=== PATIENT | female | born 1980 | race Caucasian/White ===

== ENCOUNTER → 2023-09-05 11:26 | Outpatient (REF) | payer OTHER, SELFPAY | LOC: RAD 11:26 | PROVIDERS: ATTENDING PHYSICIAN Nurse Practitioner Family | DX: M79.641 Pain in right hand (principal) | CPT/HCPCS: 73130 ==

== ENCOUNTER → 2024-02-12 17:11 | Outpatient (REF) | payer OTHER, SELFPAY | LOC: RAD 17:11 | PROVIDERS: ATTENDING PHYSICIAN Nurse Practitioner Family | DX: N93.9 Abnormal uterine and vaginal bleeding, unspecified (principal) | CPT/HCPCS: 76830; 76856 ==

== ENCOUNTER → 2024-02-17 17:22 | Outpatient (REF) | payer OTHER, SELFPAY | LOC: WDC 17:22 | PROVIDERS: ATTENDING PHYSICIAN Nurse Practitioner Family; FAMILY PHYSICIAN Physician Assistant | DX: Z12.31 Encounter for screening mammogram for malignant neoplasm of breast (principal) | CPT/HCPCS: 77063; 77067 ==

== ENCOUNTER 2024-04-16 06:26 | Day surgery (SDC) | payer OTHER, SELFPAY ==
[2024-04-02 08:59] LABS: % Basophils 0.4 % (0-2); % Eosinophils 1.2 % (0-6); % Immature Granulocytes 0.3 % (0-0.5); % Lymphocytes 35.7 % (20.5-51.1); % Monocytes 5.3 % (1.7-9.3); % Neutrophils 57.1 % (42.2-75.2); Absolute Eosinophils 0.1 10^3/uL (0-0.7); Absolute Lymphocytes 2.8 10^3/uL (1.2-3.4); Absolute Monocytes 0.4 10^3/uL (0.1-0.6); Absolute Neutrophils 4.4 10^3/uL (1.4-6.5); Hematocrit 35.9 % (37.0-47.0); Hemoglobin 11.4 g/dL (12.0-16.0); Mean Corp Hgb Conc. 31.8 g/dL (33.0-37.0); Mean Corpuscular Hgb 24.3 pg (27.0-31.0); Mean Corpuscular Volume 76.4 fL (81.0-99.0); Nucleated Red Blood Cells % 0 %; Platelet Count 254 10^3/uL (130-400); Red Cell Dist. Width 17.8 % (11.5-14.5); White Blood Cell Count 7.7 10^3/uL (4.8-10.8)
[2024-04-02 09:10] VITALS: BMI 39.5
[2024-04-02 09:36] LABS: Blood Urea Nitrogen 8 mg/dl (7-17); Calcium 9.3 mg/dl (8.4-10.2); Carbon Dioxide 23 mmol/L (22-30); Chloride 105 mmol/L (98-107); Estimated Creatinine Clearance > 125 ml/min; Glucose 100 mg/dl (70-99); Potassium 4.2 mmol/L (3.5-5.1); Sodium 140 mmol/L (135-145); eGFR > 60.00
[2024-04-02 09:45] LABS: Beta HCG Quantitative < 2.39 mIU/ml
[2024-04-16] VITALS (11 sets, daily range): BP systolic 121–147; BP diastolic 55–93; BMI 39.5
[2024-04-16] MEDS: HEPARIN 5000 UNITS SC (11:02)
[2024-04-16] MEDS: TYLENOL 1000 MG PO (11:03)
[2024-04-16] MEDS: NEURONTIN 300 MG PO (11:03)
--- NOTE | 2024-04-16 15:15 | W.IMMPOSTOP ---
Surgical Immed Post Op Note
-
Primary Surgeon: Kenna Tarango, DO
Assisting Surgeon: same
Pre-op Diagnosis: Menorrhagia, probable adenomyosis, dysmenorrhea, anemia
Post-op Diagnosis: same
Procedure Performed: Robotic assisted total laparoscopic hysterectomy bilateral salpingectomy, lysis adhesions
Anesthesia Type: general ET, Dr. Ndiaye
Specimen / Cultures: uterus, cervix, bilateral fallopian tubes
Estimated Blood Loss: 15ml
Urine: 200ml clear yellow urine
Complications: none
Operative Findings: Omental adhesions to anterior abdominal wall. Uterus globular in shape. Adhesions from prior csection noted in YO.
Distal portion of right fallopian tube with fimbriated end is surgically absent from prior partial salpingectomy. Proximal portions of tubes attached to uterus.
No evidence of endometriosis.
Counts correct times 2.
stable to recovery.
== END 2024-04-16 18:00 | disposition home or self-care (01) ==
LOC: SDS 06:26
PROVIDERS: ATTENDING PHYSICIAN Obstetrics & Gynecology; FAMILY PHYSICIAN Nurse Practitioner Family
DX: N80.03 Adenomyosis of the uterus (principal); D64.9 Anemia, unspecified; N92.0 Excessive and frequent menstruation with regular cycle; K66.0 Peritoneal adhesions (postprocedural) (postinfection); N94.6 Dysmenorrhea, unspecified
CPT/HCPCS: 58571; 88307; 36415; 80048; 84702; 85025; 86850; 86900; 86901

== ENCOUNTER → 2024-08-13 11:33 | Outpatient (REF) | payer OTHER, SELFPAY | LOC: RAD 11:33 | PROVIDERS: ATTENDING PHYSICIAN Nurse Practitioner Family | DX: M54.50 Low back pain, unspecified (principal) | CPT/HCPCS: 72110; 73502 ==

== ENCOUNTER → 2024-09-25 13:20 | Outpatient (REF) | payer OTHER, SELFPAY | LOC: PAVMRI 13:20 | PROVIDERS: ATTENDING PHYSICIAN Physical Medicine & Rehabilitation; FAMILY PHYSICIAN Nurse Practitioner Family | DX: M54.16 Radiculopathy, lumbar region (principal) | CPT/HCPCS: 72148 ==

== ENCOUNTER 2024-11-09 11:36 | Outpatient (RCR) | payer OTHER, SELFPAY | END 2024-11-16 13:40 | disposition home or self-care (01) | LOC: RPT 11:36 | PROVIDERS: ATTENDING PHYSICIAN Physical Medicine & Rehabilitation; FAMILY PHYSICIAN Nurse Practitioner Family | DX: M54.16 Radiculopathy, lumbar region (principal); M51.26 Other intervertebral disc displacement, lumbar region; Z73.6 Limitation of activities due to disability | CPT/HCPCS: 97161 ==

== ENCOUNTER 2024-11-11 20:29 | Day surgery (SDC) | payer OTHER, SELFPAY ==
[2024-11-11] VITALS (14 sets, daily range): BP systolic 119–236; BP diastolic 67–122; BMI 41.1; BMI 40.5; BMI 41.0
[2024-11-11 11:26] LABS: % Basophils 0.2 % (0-2); % Eosinophils 0.9 % (0-6); % Immature Granulocytes 0.4 % (0-0.5); % Lymphocytes 21.1 % (20.5-51.1); % Monocytes 3.6 % (1.7-9.3); % Neutrophils 73.8 % (42.2-75.2); Absolute Eosinophils 0.1 10^3/uL (0-0.7); Absolute Lymphocytes 1.8 10^3/uL (1.2-3.4); Absolute Monocytes 0.3 10^3/uL (0.1-0.6); Absolute Neutrophils 6.3 10^3/uL (1.4-6.5); Hematocrit 38.7 % (37.0-47.0); Hemoglobin 13.5 g/dL (12.0-16.0); Mean Corp Hgb Conc. 34.9 g/dL (33.0-37.0); Mean Corpuscular Hgb 29.6 pg (27.0-31.0); Mean Corpuscular Volume 84.9 fL (81.0-99.0); Mean Platelet Volume 9.5 fL (7.4-10.4); Nucleated Red Blood Cells % 0 %; Platelet Count 178 10^3/uL (130-400); Red Blood Cell Count 4.56 10^6/uL (4.20-5.40); Red Cell Dist. Width 12.3 % (11.5-14.5); White Blood Cell Count 8.6 10^3/uL (4.8-10.8)
--- NOTE | 2024-11-11 11:37 | ED.GENMED ---
History of Present Illness
<DO Abilio Mtz Last Filed: 11/13/24 06:15>
General
Chief Complaint: Chest Pain
Source: patient
Time Seen by Provider: 11/11/24 11:25
History of Present Illness
History of Present Illness:
44-year-old female presents to the emergency room complaining of chest pain. Patient also complaining of headaches and not feeling herself. Patient also has been experiencing low back pain from a herniated disc and degenerative disc disease. She
recently had epidural injections. She was sent to physical therapy for her back. Last week when she went for physical therapy they would not perform it because her blood pressure was high. Patient contacted her family doctor and she was told to
monitor her blood pressure and come to the emergency room if she feels worse. Patient woke this morning and was experiencing this discomfort in her center of her chest. She thought it might be indigestion but symptoms did not improve with Pepcid.
Pain seems to come and go without any correlation with activity. She denies any associated shortness of breath.
Past History
<DO Abilio Mtz Last Filed: 11/13/24 06:15>
Past History
ED Past Medical History: None
ED Past Surgical History: None
Social History
Personal:
Living: with family
Phy Exam
<DO Abilio Mtz Last Filed: 11/13/24 06:15>
Physical Exam
Physical Exam:
General: Awake, Alert, Oriented X3. No acute distress.
Vitals: unremarkable
Head: Atraumatic
Eyes: Pupils equal, EOMI
Throat: Airway intact, no exudates
Neck: Trachea midline
Lungs: Clear and equal b/l
Heart: Regular rate, no murmurs
Abd: Soft, Nontender, No pulsatile mass
Neuro: Nonfocal l
Skin: Warm, dry, no rash
Extremities: pulses equal b/l, no edema
Scores
<Salinas SchultzSterling Ku, DO - Last Filed: 11/13/24 06:15>
Heart Score for Chest Pain Patients
STEMI patient?: No
History: Slightly or Non-Suspicious
ECG: Normal
Age: </= 45 years
Risk Factors: No Risk Factors
Troponin: </= Normal Limit
Heart Score for Chest Pain Patients: 0
Heart Score Risk: 2.5% MACE over next 6 weeks
Course
<Salinas AntoineSterling Ku, DO - Last Filed: 11/13/24 06:15>
Orders/Labs/Results
Orders:
Orders
11/11/24 10:48
Electrocardiogram (*1) Urgent
Reason for Study: Chest Pain
EKG- Treatment ONCE
11/11/24 11:18
Test Result ONCE
11/11/24 11:20
Complete Blood Count/With Diff Urgent
11/11/24 11:36
Mag Hydrox/Al Hydrox/Simeth [Maalox] 30 ml Phenobarb/Hyoscy/Atropine/Scop [] 10 ml PO NOW
CR Chest - 2 Views Urgent
Comment:
Reason For Exam: chest pain
11/11/24 11:46
Phenobarb/Hyoscy/Atropine/Scop [] 10 ml .ROUTE .STK-MED ONE
11/11/24 11:47
Mag Hydrox/Al Hydrox/Simeth [Maalox] 30 ml .ROUTE .STK-MED ONE
11/11/24 11:50
Comprehensive Metabolic Panel Urgent
HCG, Serum Qualitative Screen Urgent
Lipase Urgent
11/11/24 11:59
Troponin I Urgent
11/11/24 Dinner
Regular
At Your Request: Full Participation
11/11/24 15:49
Troponin I Urgent
11/11/24 16:21
Ketorolac [Toradol] 15 mg IV NOW STA
11/11/24 17:39
HYDROmorphone [Dilaudid] 1 mg IV NOW STA
US Abdomen Complete/Upper Urgent
Comment:
Reason For Exam: ruq pain
11/11/24 19:44
Admit/Transfer Patient As Directed
Co-Sign Provider:
Level of Care: Observation services
Assign to:: Medical/Surgical
Physician / Group: general surgery
Diagnosis: acute cholelithiasis
11/11/24 19:45
PRN Pain Medication Management As Directed
May give lesser potent ordered pain med per pt: Yes
preference::
Protocol:: Medication orders for pain may be administered in a
manner that supports deferring to patient preference
when the pt is:
- Requesting an ordered lesser potent pain medication.
Least to most potent pain medications are defined
as: acetaminophen < NSAID < tramadol < opioids
(morphine, oxycodone, hydromorphone).
- Requesting a lesser dose of the same medication IF
ORDERED.
- Requesting a less intrusive route of administration
if both routes are prescribed by the provider (PO <
IV).
11/11/24 19:47
Code Status As Directed
Resuscitation Status: Full Code
11/11/24 20:08
0.9% Sodium Chloride 1000 ml [Nss] 1,000 ml IV 125 mls/hr
HYDROmorphone [Dilaudid] 1 mg IV Q3HPRN PRN
Ketorolac [Toradol] 15 mg IV Q6HPRN PRN
11/11/24 20:09
Piperacillin/Tazo 3.375 Gram [Zosyn] 3.375 gram in 50 ml IV Q6H
11/11/24 20:36
HydrALAZINE [Apresoline] 5 mg IV Q4HPRN PRN
11/11/24 20:36
Activity As Directed
Activity Level: Out of Bed-Early Mobility
Intake/ Output As Directed
Frequency: Per unit guidelines
Pneumatic Compression Sleeves As Directed
Type: Knee high
Vital Signs As Directed
Frequency: Per unit guidelines
Rx Incentive Spirometry [RESP] Routine
Frequency: q1h while awake
# of times per hour: 10
DX Deep Vein Thrombosis Video Routine
11/11/24 22:00
Gabapentin [Neurontin] 300 mg PO TID
11/12/24 Breakfast
NPO
Allow oral meds: Yes
Allow clear liquids: No
NPO with Ice Chips: No
NPO for procedure after (time): 0000 11/12/24
11/12/24 07:45
Complete Blood Count/With Diff IN AM
Hemoglobin A1c [Glycohemoglobin (HgbA1c)] IN AM
Otgnv-Puai-Klaviwa IN AM
Abnormal Lab Results
11/11/24
11:50
Chloride 109 H mmol/L
(98-107)
Creatinine 0.5 L mg/dL
(0.6-1.0)
Glucose 182 H mg/dl
(70-99)
AST 42 H U/L
(14-36)
ALT 72 H U/L
(0-35)
11/11/24 11:20
11/11/24 11:50
Vital Signs
Initial and Last Documented VS:
Initial Vital Signs
Temp Pulse Resp BP Pulse Ox
98.7 F 85 18 236/119 98
11/11/24 10:55 11/11/24 10:55 11/11/24 10:55 11/11/24 10:55 11/11/24 10:55
Last Documented Vital Signs
Temp Pulse Resp BP Pulse Ox
98.4 F 98 17 131/79 97
11/13/24 03:15 11/13/24 03:15 11/13/24 03:15 11/13/24 03:15 11/13/24 03:15
<Hossein Marshall, DO - Last Filed: 11/11/24 19:16>
Orders/Labs/Results
Orders:
Orders
11/11/24 10:48
Electrocardiogram (*1) Urgent
Reason for Study: Chest Pain
EKG- Treatment ONCE
11/11/24 11:18
Test Result ONCE
11/11/24 11:20
Complete Blood Count/With Diff Urgent
11/11/24 11:36
Mag Hydrox/Al Hydrox/Simeth [Maalox] 30 ml Phenobarb/Hyoscy/Atropine/Scop [] 10 ml PO NOW
CR Chest - 2 Views Urgent
Comment:
Reason For Exam: chest pain
11/11/24 11:46
Phenobarb/Hyoscy/Atropine/Scop [] 10 ml .ROUTE .STK-MED ONE
11/11/24 11:47
Mag Hydrox/Al Hydrox/Simeth [Maalox] 30 ml .ROUTE .STK-MED ONE
11/11/24 11:50
Comprehensive Metabolic Panel Urgent
HCG, Serum Qualitative Screen Urgent
Lipase Urgent
11/11/24 11:59
Troponin I Urgent
11/11/24 Dinner
Regular
At Your Request: Full Participation
11/11/24 15:49
Troponin I Urgent
11/11/24 16:21
Ketorolac [Toradol] 15 mg IV NOW STA
11/11/24 17:39
HYDROmorphone [Dilaudid] 1 mg IV NOW STA
US Abdomen Complete/Upper Urgent
Comment:
Reason For Exam: ruq pain
11/11/24 19:44
Admit/Transfer Patient As Directed
Co-Sign Provider:
Level of Care: Observation services
Assign to:: Medical/Surgical
Physician / Group: general surgery
Diagnosis: acute cholelithiasis
11/11/24 19:45
PRN Pain Medication Management As Directed
May give lesser potent ordered pain med per pt: Yes
preference::
Protocol:: Medication orders for pain may be administered in a
manner that supports deferring to patient preference
when the pt is:
- Requesting an ordered lesser potent pain medication.
Least to most potent pain medications are defined
as: acetaminophen < NSAID < tramadol < opioids
(morphine, oxycodone, hydromorphone).
- Requesting a lesser dose of the same medication IF
ORDERED.
- Requesting a less intrusive route of administration
if both routes are prescribed by the provider (PO <
IV).
11/11/24 19:47
Code Status As Directed
Resuscitation Status: Full Code
11/11/24 20:08
0.9% Sodium Chloride 1000 ml [Nss] 1,000 ml IV 125 mls/hr
HYDROmorphone [Dilaudid] 1 mg IV Q3HPRN PRN
Ketorolac [Toradol] 15 mg IV Q6HPRN PRN
11/11/24 20:09
Piperacillin/Tazo 3.375 Gram [Zosyn] 3.375 gram in 50 ml IV Q6H
11/11/24 20:36
HydrALAZINE [Apresoline] 5 mg IV Q4HPRN PRN
11/11/24 20:36
Activity As Directed
Activity Level: Out of Bed-Early Mobility
Intake/ Output As Directed
Frequency: Per unit guidelines
Pneumatic Compression Sleeves As Directed
Type: Knee high
Vital Signs As Directed
Frequency: Per unit guidelines
Rx Incentive Spirometry [RESP] Routine
Frequency: q1h while awake
# of times per hour: 10
DX Deep Vein Thrombosis Video Routine
11/11/24 22:00
Gabapentin [Neurontin] 300 mg PO TID
11/12/24 Breakfast
NPO
Allow oral meds: Yes
Allow clear liquids: No
NPO with Ice Chips: No
NPO for procedure after (time): 0000 11/12/24
11/12/24 07:45
Complete Blood Count/With Diff IN AM
Hemoglobin A1c [Glycohemoglobin (HgbA1c)] IN AM
Uadgx-Jyej-Cgxbcht IN AM
Abnormal Lab Results
11/11/24
11:50
Chloride 109 H mmol/L
(98-107)
Creatinine 0.5 L mg/dL
(0.6-1.0)
Glucose 182 H mg/dl
(70-99)
AST 42 H U/L
(14-36)
ALT 72 H U/L
(0-35)
11/11/24 11:20
11/11/24 11:50
Vital Signs
Initial and Last Documented VS:
Initial Vital Signs
Temp Pulse Resp BP Pulse Ox
98.7 F 85 18 236/119 98
11/11/24 10:55 11/11/24 10:55 11/11/24 10:55 11/11/24 10:55 11/11/24 10:55
Last Documented Vital Signs
Temp Pulse Resp BP Pulse Ox
98.4 F 98 17 131/79 97
11/13/24 03:15 11/13/24 03:15 11/13/24 03:15 11/13/24 03:15 11/13/24 03:15
<Salinas Ku DO - Last Filed: 11/13/24 06:15>
MDM/Problems Addressed
Differential Diagnosis Includes:
Angina, gastritis, chest wall pain
<DO Abilio Mtz Last Filed: 11/13/24 06:15>
*Pulse Oximetry
Patient hypoxic: no
*EKG
Interpreted by ED Provider?: Yes
Interpretation: normal
Heart Rate: 86
Rate: normal
Rhythm: sinus
[place]: normal axis
Interval: normal interval
QRS Pattern: normal QRS
Ischemia: no ischemia
*Claims Customer Service Representative Interpretation
Rate: normal
Interpretation: normal
Rhythm: sinus
*Critical Care Note
Total Time (30-74mins, 75-104mins- exclusive of procedures): Not Applicable
<Hossein Marshall, DO - Last Filed: 11/11/24 19:16>
Update Note
Update Note:
5:30 PM 3 PM ER attending
Update, patient signed out pending second troponin reevaluation she has chronic low back pain recently underwent some steroid injections, known gallstones, was exacerbated during , she has reproducible chest pain with 2 undetectable
troponins, no hypoxia, 99% room air pulse ox she asks if this could be this could be her gallbladder, on exam she does have some right upper quadrant pain
Will try to get her comfortable, check right upper quadrant ultrasound
7:15 PM ultrasound report noted patient more comfortable after Dilaudid but still with some pain in her right upper quadrant
She has chronic back pain did present with some chest pain this point I think it is prudent to bring her in the hospital message sent to the hospitalist into general surgery
ED Attending Note
<Salinas Ku, - Last Filed: 11/13/24 06:15>
-
Portions of this chart may have been created with voice recognition software.� Occasional wrong word or��sound alike� substitutions may have occurred due to the inherent limitations of voice recognition software.
Discharge Plan
Departure
Patient Disposition: Admit
Date of Disposition: 11/11/24
Time of Disposition: 19:16
Admit to: Telemetry
Presentation/result/management discussed w/ accepting MD/DO: General surgery
Patient with high blood pressure during this ER visit?: Yes
Condition: Good
Discharge Problem:
Abdominal pain, Gallstone
Interventions
Interventions:
*Risk Screen - Suicide Last Done: 11/11/24 10:55
*General Assessment Last Done: 11/11/24 10:55
*Neglect/Abuse Screening Last Done: 11/11/24 10:55
*ED- Fall Risk Assessment Last Done: 11/11/24 11:22
*ED COVID-19 Vaccine History Last Done: 11/11/24 11:22
*Nursing Disposition Last Done: 11/11/24 20:34
ED- Cardiac Assessment Last Done: 11/11/24 11:24
Discharge Date and Time
Discharge Date/Time: 11/11/24 20:35
[2024-11-11] MEDS: MAALOX 40 PO (11:47)
[2024-11-11 12:23] LABS: HCG, Serum Qualitative Screen Negative
[2024-11-11 12:31] LABS: ALT (SGPT) 72 U/L (0-35); AST (SGOT) 42 U/L (14-36); Albumin 4.4 g/dl (3.5-5.0); Alkaline Phosphatase 54 U/L (38-126); Blood Urea Nitrogen 7 mg/dl (7-17); Calcium 9.6 mg/dl (8.4-10.2); Carbon Dioxide 23 mmol/L (22-30); Chloride 109 mmol/L (98-107); Estimated Creatinine Clearance > 125 ml/min; Glucose 182 mg/dl (70-99); Lipase 79 U/L (23-300); Potassium 4.1 mmol/L (3.5-5.1); Sodium 141 mmol/L (135-145); Total Bilirubin 0.6 mg/dl (0.2-1.3); Total Protein 7.2 g/dl (6.3-8.2); eGFR > 60.00
[2024-11-11 12:47] LABS: Troponin I < 0.012 ng/ml
[2024-11-11 16:19] LABS: Troponin I < 0.012 ng/ml
[2024-11-11] MEDS: TORADOL 15 MG IV (16:55)
[2024-11-11] MEDS: DILAUDID 1 MG IV ×2 (17:51→21:09)
--- NOTE | 2024-11-11 19:23 | HPS.HSE ---
Family Physician
-
Family Physician: Kaya Chambers PA-C
Chief Complaint
-
Epigastric pain
History of Present Illness
This is a 44-year-old female with past medical history significant for obesity, chronic back pain presents to the emergency department with complaints of chest pain. She reports not feeling well overall. She had additional numerous complaints
including low back pain for which she had been diagnosed with an needed disc and degenerative disc disease. She has had recent epidural injection. She arose this morning experienced discomfort in the joints of her chest. She thought it might be
indigestion but did not improve with Pepcid. Pain is intermittent. She denies any association with shortness of breath nausea or vomiting. She denies any fevers or chills.
In the emergency department she was afebrile, blood pressure was 170/99 with a pulse of 77 she was satting 95% on room air.
CBC was unremarkable.
The electrolyte BUN/creatinine were all normal. LFTs were normal. Lipase was normal. ECG with sinus rhythm and nonischemic. Troponin negative.
She had a clear chest x-ray.
Abdominal ultrasound showing:
1. Cholelithiasis and gallbladder wall thickening, findings which can be seen in the clinical setting of acute cholecystitis. Negative sonographic Gaming's sign, although the patient was medicated which limits sensitivity.
2. Hepatomegaly and increased echogenicity in the liver, compatible with underlying hepatocellular disease, which most commonly relates to fatty infiltration of the liver.
3. Mild splenomegaly.
Medical History
Past Medical History
Past Medical History: Reports Other
Additional Past Medical History:
Hypertension
Past Surgical History: Reports Other
Additional Past Surgical History:
Hysterectomy
2 C-sections
Social History
Tobacco: Non-smoker
Alcohol: None
Drug: None
Family History
Family History: Not pertinent
Allergies / Home Medications
Allergies reflects when Allergies were last updated in [facility].
Home Medications with original date entered in [facility]
Allergy/Medication List:
Allergies
Allergy/AdvReac Type Severity Reaction Status Date / Time
No Known Allergies Allergy Verified 11/11/24 10:54
Home Medications
medroxyprogesterone 5 mg tablet (Provera) 5 mg PO DAILY 04/09/24
turmeric 400 mg capsule 400 mg PO DAILY 04/09/24
iron 65 mg PO DAILY 04/16/24
oxycodone 5 mg tablet 5 mg PO SDS-Q4HPRN PRN moderate pain #12 tabs 04/16/24
Review of Systems
-
Constitutional: Reports No Symptoms
EENT: Reports No Symptoms
Respiratory: Reports No Symptoms
Cardiac: Reports No Symptoms
Abdomen/GI: Reports No Symptoms
: Reports No Symptoms
Musculoskeletal: Reports No Symptoms
Skin: Reports No Symptoms
Neurological: Reports No Symptoms
Endocrine: Reports No Symptoms
Hematologic/Lymphatic: Reports No Symptoms
Psych: Reports No Symptoms
Physical Exam
Vital Signs
Vital Signs
Temp Pulse Resp BP Pulse Ox
98.7 F 77 17 170/99 95
11/11/24 10:55 11/11/24 18:45 11/11/24 18:45 11/11/24 18:34 11/11/24 18:45
Physical Exam
General: Well Developed, Well Nourished and No Apparent Distress
HEENT: NormoCephalic, Moist mucous membranes and Atraumatic
Respiratory: Clear
Cardiac: S1/S2 and Regular Rhythm; No Murmur or Rub
GI: Soft, Non Tender, Non Distended and Normal Bowel Sounds; No Organomegaly
Rectal: Deferred by Provider
Musculoskeletal: No Clubbing, No Cyanosis and No Edema
Skin: No Rash
Neuro: Nonfocal/grossly intact
Psych: Calm
Laboratory Results
-
11/11/24 11:20
11/11/24 11:50
Laboratory Results
Total Bilirubin 0.6 mg/dl (0.2-1.3) 11/11/24 11:50
AST 42 U/L (14-36) H 11/11/24 11:50
ALT 72 U/L (0-35) H 11/11/24 11:50
Alkaline Phosphatase 54 U/L (38-126) 11/11/24 11:50
Troponin I < 0.012 ng/ml 11/11/24 15:49
Lipase 79 U/L (23-300) 11/11/24 11:50
Data Reviewed
-
Diagnostic Radiology: Image Personally Visualized and interpreted and Report Reviewed by me
Ultrasound: Report Reviewed by me
Medical Tests (Nuc Med, Echo, EKG etc): Image Personally Visualized and interpreted
Old Records: Reviewed
Impression/Plan
-
IMPRESSION:
44-year-old female with morbid obesity, BMI 40 presenting to the emergency department with epigastric discomfort and found to have acute cholecystitis on ultrasound. She is afebrile. Hemodynamically stable. She has no leukocytosis. Had a
gallstones in the gallbladder but no evidence of choledocholithiasis. No evidence of acute cholangitis.
PLAN:
1. Acute cholecystitis
- Admit to MedSurg
- N.p.o.
- IV fluids
- Unasyn for now
- Trend LFTs
- Pain control, antiemetics
- Surgery consulted and aware
DVT prophylaxis�heparin subcu
CODE STATUS�full code
--- NOTE | 2024-11-11 19:54 | HPS.HSE ---
Addendum entered and electronically signed by Westley Albright MD 11/12/24 14:27:
This is a delayed entry. Patient seen and examined earlier today independently of admitting nurse practitioner. Agree with documented progress note.
HPI: 44-year-old female with known history of cholelithiasis and previous episodes of biliary colic that she had been managing expectantly. She developed the acute onset of epigastric abdominal pain radiating substernally with nausea and anorexia.
More severe than her previous episodes of biliary colic. She was worried that it could be cardiac in etiology because her blood pressure was high. She presented for emergency department evaluation and pulmonary/cardiac workup negative. Ultrasound
confirmed gallstones and 5 mm wall with pericholecystic edema. She was admitted secondary to persistent symptoms.
PMH newly diagnosed hypertension. Lumbar herniated disc
PSH and robotic AJAY/BSO
AFVSS
NAD AAO x 3
ABD: Soft, nondistended, mild tenderness palpation epigastrium and right upper quadrant. No rebound rigidity or guarding.
Assessment/plan: Reviewed with patient history and workup which is consistent with acute biliary colic versus acute calculus cholecystitis. We discussed operative as well as nonoperative management options. Surveillance with a low-fat diet
modification may be associated with about 60% risk for recurrent symptomatic cholelithiasis. Briefly discussed lower risk for additional secondary gallstone mediated complications such as acute calculous cholecystitis, pancreatitis,
choledocholithiasis.
In the setting of acute biliary colic/acute calculus cholecystitis Ms. Armstrong would like to proceed with cholecystectomy.
Laparoscopic cholecystectomy with cholangiogram was reviewed in detail including operative technique and alternative management options. The potential benefits and risks of the procedure were reviewed in detail, including but not limited to
infectious or wound healing complications, bleeding, bile leak, injury to biliary tree, iatrogenic injury to surrounding viscera and post cholecystectomy syndrome. Reviewed the typical postoperative recovery.
Any of the patient's concerns or questions were fully addressed and informed consent was obtained.
Original Note:
Family Physician
-
Family Physician: Kaya Chambers PA-C
Chief Complaint
-
chest pain/upper abd pain
History of Present Illness
44-year-old female presents to the emergency room complaining of chest pain. Pt states started with upper chest pain (epigastric) this am, initially thought it was indigestion and took some pepcid which did not help. Had nausea but no vomiting.
Denies fever or chills Patient also complaining of headaches and not feeling herself. Patient also has been experiencing low back pain from a herniated disc and degenerative disc disease. She recently had epidural injections (2 weeks ago). Last
week when she went for physical therapy they would not perform it because her blood pressure was high. Patient contacted her family doctor and she was told to monitor her blood pressure and come to the emergency room if she feels worse- this
morning bp was 203/103. Mother had NV at age 45 so she was worried about that ad took 81mg asa prior to coming to ED. Pain seems to come and go without any correlation with activity. She denies any associated shortness of breath. Father and
sister had gallbladder disease as well.
ED treament:
toradol x1
dilaudid 1mg x 1 which improved pain
Abd Us: IMPRESSION:
1. Cholelithiasis and gallbladder wall thickening, findings which can be seen in the clinical setting of acute cholecystitis. Negative sonographic Gaming's sign, although the patient was medicated which limits sensitivity.
2. Hepatomegaly and increased echogenicity in the liver, compatible with underlying hepatocellular disease, which most commonly relates to fatty infiltration of the liver.
3. Mild splenomegaly.
Medical History
Past Medical History
Past Medical History: Reports HTN (newly dx. not started on medications yet. told to monitor at home and log) and Other (herniated lumbar disc. had epidural 2 weeks ago)
Past Surgical History: Reports and Gynocological ([facility] with bso 04/2024)
Social History
Tobacco: Non-smoker
Alcohol: None
Personal:
Living: With Family
Employment: Employed (at [employer])
Family History
Family History: Other (mother NV at age 45y, father and sister with gallbladder disease)
Allergies / Home Medications
Allergies reflects when Allergies were last updated in [employer].
Home Medications with original date entered in [employer]
Allergies
Allergy/AdvReac Type Severity Reaction Status Date / Time
No Known Allergies Allergy Verified 11/11/24 10:54
Home Medications
gabapentin 300mg po tid
celebrex 200mg po daily
Allergy/Medication List:
Allergies
Allergy/AdvReac Type Severity Reaction Status Date / Time
No Known Allergies Allergy Verified 11/11/24 10:54
Home Medications
gabapentin 300mg po tid
celebrex 200mg po daily
Review of Systems
-
History Source: Patient
A 12 point ROS was completed and negative except as noted: Yes
Constitutional: Reports No Symptoms
EENT: Reports No Symptoms
Respiratory: Reports No Symptoms
Cardiac: Reports Chest Pain (RUQ, high bp at home 203/104)
Abdomen/GI: Reports Abdominal Pain (RUQ) and Nausea
: Reports No Symptoms
Musculoskeletal: Reports Other (back pain with radiculopathy to RLE. had epidural 2 weeks ago)
Skin: Reports No Symptoms
Neurological: Reports No Symptoms
Endocrine: Reports No Symptoms
Hematologic/Lymphatic: Reports No Symptoms
Psych: Reports No Symptoms
Physical Exam
Vital Signs
Vital Signs
Temp Pulse Resp BP Pulse Ox
98.7 F 77 17 170/99 95
11/11/24 10:55 11/11/24 18:45 11/11/24 18:45 11/11/24 18:34 11/11/24 18:45
Physical Exam
General: Well Developed, Well Nourished, No Apparent Distress and Comfortable
HEENT: NormoCephalic, Moist mucous membranes and Atraumatic
Respiratory: Clear
Cardiac: S1/S2 and Regular Rhythm
Breast: Deferred by me
GI: Normal Bowel Sounds and Tender (ruq tender to palpation)
Rectal: Deferred by Provider
Genito-urinary: Deferred by me
Musculoskeletal: No Clubbing and No Cyanosis
Skin: Warm and Dry
Neuro: Awake, Alert, Oriented, AO x 3 and No Motor Deficits
Hematologic/Lymphatic: No Lymphadenopathy
Psych: Calm
Laboratory Results
-
11/11/24 11:20
11/11/24 11:50
Laboratory Results
Total Bilirubin 0.6 mg/dl (0.2-1.3) 11/11/24 11:50
AST 42 U/L (14-36) H 11/11/24 11:50
ALT 72 U/L (0-35) H 11/11/24 11:50
Alkaline Phosphatase 54 U/L (38-126) 11/11/24 11:50
Troponin I < 0.012 ng/ml 11/11/24 15:49
Lipase 79 U/L (23-300) 11/11/24 11:50
Data Reviewed
-
Ultrasound: Report Reviewed by me and Discussed with Physician
Impression/Plan
-
IMPRESSION:
acute cholelithiasis
PLAN:
Admit to service of Dr Varghese
med surg obs
#acute cholelithiaisis
-NPO x meds after midnight
-ivf NSS @ 125
-Pain control: dilaudid, toradol prn
-zosyn q6h
-Abd US: IMPRESSION:
1. Cholelithiasis and gallbladder wall thickening, findings which can be seen in the clinical setting of acute cholecystitis. Negative sonographic Gaming's sign, although the patient was medicated which limits sensitivity.
2. Hepatomegaly and increased echogenicity in the liver, compatible with underlying hepatocellular disease, which most commonly relates to fatty infiltration of the liver.
3. Mild splenomegaly.
#HTN
-hydralazine prn
-follow up with [facility] at [facility] for [facility]N
#herniated disc lumbar spine
-cont gabapentin
-hold celebrex
# morbid obesity
-affects all aspect of care
-weight loss encouraged
DVT proph: scd
Full code
[2024-11-11] MEDS: NSS 1000 IV (21:10)
[2024-11-11] MEDS: ZOSYN 50 IV (21:10)
[2024-11-11] MEDS: APRESOLINE 5 MG IV (21:10)
[2024-11-11] MEDS: NEURONTIN 300 MG PO (21:11)
--- NOTE | 2024-11-11 21:30 | PTCARENOTE ---
Pt. admitted to 2S from ED via stretcher and able to ambulate to room bed without difficulty. Pt. A&Ox3, in NAD but reports feeling prior pain medication starting to wear off, even and unlabored breathing on RA, vital signs stable with high BP, will
give PRN Hydralazine per orders. Questions/concerns of patient and spouse addressed at time of assessment. Bed locked and in lowest position, side rails in place, and call light within reach.
[2024-11-12] VITALS (13 sets, daily range): BP systolic 112–172; BP diastolic 50–109
[2024-11-12] MEDS: TORADOL 15 MG IV ×3 (00:01→21:49)
[2024-11-12] MEDS: ZOSYN 50 IV ×2 (02:08→08:56)
[2024-11-12] MEDS: NSS 1000 IV ×2 (06:34→16:11)
[2024-11-12 08:08] LABS: % Basophils 0.2 % (0-2); % Eosinophils 0.9 % (0-6); % Immature Granulocytes 0.4 % (0-0.5); % Lymphocytes 25.1 % (20.5-51.1); % Monocytes 3.7 % (1.7-9.3); % Neutrophils 69.7 % (42.2-75.2); Absolute Eosinophils 0.1 10^3/uL (0-0.7); Absolute Lymphocytes 2.5 10^3/uL (1.2-3.4); Absolute Monocytes 0.4 10^3/uL (0.1-0.6); Hematocrit 35.1 % (37.0-47.0); Hemoglobin 12.2 g/dL (12.0-16.0); Mean Corp Hgb Conc. 34.8 g/dL (33.0-37.0); Mean Corpuscular Hgb 29.3 pg (27.0-31.0); Mean Corpuscular Volume 84.2 fL (81.0-99.0); Mean Platelet Volume 9.7 fL (7.4-10.4); Nucleated Red Blood Cells % 0 %; Platelet Count 190 10^3/uL (130-400); Red Blood Cell Count 4.17 10^6/uL (4.20-5.40); Red Cell Dist. Width 12.3 % (11.5-14.5)
[2024-11-12] MEDS: NEURONTIN 200 MG PO ×3 (08:56→21:48)
[2024-11-12 08:59] LABS: ALT (SGPT) 57 U/L (0-35); AST (SGOT) 28 U/L (14-36); Albumin 3.7 g/dl (3.5-5.0); Alkaline Phosphatase 48 U/L (38-126); Direct Bilirubin 0.2 mg/dl (0.0-0.4); Total Bilirubin 0.9 mg/dl (0.2-1.3); Total Protein 6.2 g/dl (6.3-8.2)
[2024-11-12 09:22] LABS: Glycohemoglobin (HgbA1c) 5.8 % (4.0-5.6)
--- NOTE | 2024-11-12 11:43 | CM ---
Addendum entered by Magalis Hodges 11/12/24 11:47:
Patient now [facility] [place].
Original Note:
Patient seen at bedside on [address] with patient and 3 daughters. Patient states that she lives with her and 3 daughters. Patient PCP is with [facility] in [place]. Patient stated that she is for surgery
today. Patient stated that she plans for discharge home with no needs. CM will continue to follow for discharge planning needs.
Plan; home with no needs anticipated at this time
--- NOTE | 2024-11-12 14:27 | W.IMMPOSTOP ---
Addendum entered and electronically signed by Westley Albright MD 11/12/24 14:40:
#[id number]
Original Note:
Surgical Immed Post Op Note
-
Primary Surgeon: Westley Albright MD
Assisting Surgeon: Goldie FERRARA
Pre-op Diagnosis: Acute biliary colic/acute calculus cholecystitis
Post-op Diagnosis: Acute biliary colic with probable chronic calculus cholecystitis
Procedure Performed: Laparoscopic cholecystectomy with cholangiogram
Anesthesia Type: GETA +0.25% Marcaine
Specimen / Cultures: Gallbladder
Estimated Blood Loss: 6 mL
Complications: None immediate
Operative Findings: Physiologically distended gallbladder. Filmy omental adhesions suggestive of chronic cholecystitis. Some edema around the cystic triangle consistent with acute biliary colic. Intraoperative cholangiogram normal. Cystic duct
controlled with 2 clips and an 0 PDS Endoloop placed proximal to clip. Cystic artery and branch to cystic duct controlled with clips. Gallbladder removed off liver bed intact and extracted at epigastric 12 mm trocar site.
[2024-11-12] MEDS: ZOSYN IV (14:44)
[2024-11-12] MEDS: DILAUDID 0.25 MG IV (15:18)
[2024-11-12] MEDS: DILAUDID 0.5 MG IV ×2 (15:28→16:12)
[2024-11-12] MEDS: APRESOLINE 5 MG IV ×2 (16:09→20:21)
[2024-11-12] MEDS: LOVENOX 40 MG SC (16:12)
--- NOTE | 2024-11-12 16:25 | PTCARENOTE ---
1500: pt return from sx lap ame. GA, EBL 6mls, local to abd but pt stating uncomfortable then dozing. manual BP 164/102. Hydralazine administered. ice to belly, bed low call fox in reach NSS 125 via 20g RAC.
--- NOTE | 2024-11-12 20:00 | PTCARENOTE ---
TT Dr. Albright for BP is 163/106.. I gave Hydrazidine at 1630 for BP 173/105 than manual of 164/102. will continue to monitor.
[2024-11-12] MEDS: ZOFRAN 4 MG IV (22:18)
[2024-11-12] MEDS: DILAUDID 1 MG IV (22:58)
--- NOTE | 2024-11-13 00:52 | PTCARENOTE ---
Patient vomited large amount of emesis at approx. 2200. Patient felt relief after, antiemetic medication also administered after episode. Scant about of blood dripping from top lap site after patient vomited. Site cleaned and pressure applied with
gauze, 4x4 and occlusive drsg applied to site. At this time, when lap site is rechecked, there is no bleeding/drainage on 4x4 drsg. Care ongoing, patient lying in bed.
[2024-11-13 03:15] VITALS: BP 131/79
[2024-11-13] MEDS: NSS 1000 IV (03:37)
[2024-11-13] MEDS: NSS IV ×2 (03:37→11:35)
[2024-11-13] MEDS: ROXICODONE 5 MG PO ×2 (06:46→11:35)
[2024-11-13 07:10] VITALS: BP 141/76
--- NOTE | 2024-11-13 08:48 | W.PN.GS2 ---
Addendum entered and electronically signed by Westley Albright MD 11/13/24 09:13:
Patient seen and examined with surgical SIDER MECHANIC in follow-up this a.m.
Agree with documented progress note
Overall patient feeling well postoperatively with some lingering incisional pain but adequately controlled.
Ate breakfast well.
AFVSS
NAD AAO x 3
ABD: Soft, nondistended, incisional tenderness predominantly at epigastric site. Surgical sites with glue dressings. No hematomas, no erythema, no drainage at this time.
A/P: 44-year-old female POD #1 status post lap ame
Doing well postop
Stable for discharge home, DC instructions reviewed
Advised to continue to monitor blood pressure as she was preoperatively and if remains elevated reach out to her primary care provider
Original Note:
Today's Communication / Plan
-
discharge to home
Assessment / Plan
-
44 yo female who presented with biliary colic with probably chronic calculous cholecystitis now POD #1 lap ame
AFVSS
Tolerating diet, pain well managed
Progressing well
--Continue LFD as tolerated
--Analgesics prn
--OOB/ambulate
--Dispo planning
Subjective Data
-
Date of Service: November 13, 2024
Pt seen and examined at bedside with Dr. Albright. Denies n/v. Tolerating diet. Some incisional soreness, ice pack and analgesics helping. Passing flatus.
Objective Data
-
Intake and Output
11/12/24 11/13/24 11/14/24
06:59 06:59 06:59
Intake Total 3370 / 3370
Balance 3370 / 3370
Intake:
Oral fluids 720 / 720
IV fluids (Total) 2600 / 2600
Normosol 100 / 100
IV piggybacks 50 / 50
Other:
Number of approximated MODERATE 1
amounts of urine
How many times incontinent 3
MODERATE amount urine
Vital Signs
Temp Pulse Resp BP Pulse Ox
98.4 F 98 17 131/79 97
11/13/24 03:15 11/13/24 03:15 11/13/24 03:15 11/13/24 03:15 11/13/24 03:15
Lab Results
11/12/24 07:45
11/11/24 11:50
Calcium 9.6 mg/dl (8.4-10.2) 11/11/24 11:50
Total Bilirubin 0.9 mg/dl (0.2-1.3) 11/12/24 07:45
Direct Bilirubin 0.2 mg/dl (0.0-0.4) 11/12/24 07:45
AST 28 U/L (14-36) 11/12/24 07:45
ALT 57 U/L (0-35) H 11/12/24 07:45
Alkaline Phosphatase 48 U/L (38-126) 11/12/24 07:45
Total Protein 6.2 g/dl (6.3-8.2) L 11/12/24 07:45
Albumin 3.7 g/dl (3.5-5.0) 11/12/24 07:45
Physical Exam
-
NAD
ABD soft, nd, mild tenderness to incisions
Incisions well approximated with intact glue
--- NOTE | 2024-11-13 08:53 | W.DS.TRANS ---
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
-
Discharge Instructions:
Discharge Diagnosis/Procedures Acute cholecystitis status post laparoscopic
cholecystectomy
Diet As tolerated
Additional Diets If you have loose stools after surgery, avoid
oily, greasy foods and high fat dairy
Activity No strenuous activity
Additional Activity Do not lift over 15lbs for 2-3 weeks
Driving Restrictions No driving for 24 hours
Bathing Restrictions OK to Shower
Wound Care Allow the glue to flake off your incisions on
its own over the next 2-3 weeks. Avoid scrubbing
or picking off. Do not soak or swim in tubs or
pools for approximately 2 weeks. Ok to wash
gently with soap and water and pat dry.
Instructions:
Stand-Alone Forms:
Changes to Home Medications: No
Discharge Medications:
DC Medications w/original date entered in [employer]
turmeric 400 mg capsule 400 mg PO DAILY Supplement 04/09/24
celecoxib 50 mg capsule (Celebrex) 100 mg PO DAILY Anti-Inflammatory 11/11/24
gabapentin 100 mg tablet 200 mg PO TID Neurological Condition 11/11/24
acetaminophen 325 mg tablet 650 mg (2 x 325 mg) PO Q4HPRN PRN mild pain #1 tab 11/13/24
oxycodone 5 mg tablet 5 mg PO Q4HPRN PRN breakthrough/severe pain #10 tabs 11/13/24
Home Medication Changes
Pending Results: No
[2024-11-13] MEDS: NEURONTIN 200 MG PO (09:41)
--- NOTE | 2024-11-13 10:19 | CM ---
CM following re: discharge planning.
Reviewed pt's chart, met with pt.
Pt is POD #1 status post lap ame, doing well, remains OBS status. OBS status reviewed with the pt, pt politely declined to sign, OBS letter placed on chart, pt has a copy.
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
D/C order noted. Pt is aware and she stated her is coming to transport her home.
Nn after care VN services indicated.
D/C plan: home with no after care VN needs. to transport.
[2024-11-13 11:10] VITALS: BP 133/71
--- NOTE | 2024-11-13 14:53 | PTCARENOTE ---
at time of discharge was present and stated that he and pt were very upset with overnight care that she received last night. pt had not expressed any concerns to nurse or SOCIAL SERVICES TECHNICIAN or doctor prior to this. was frustrated that called
him last night crying that she was not cared for fours even thought she requested pain meds and felt meds were administered too quickly causing her to vomit and her one incision to ooze. wanted to speak to someone now, I offered insurance claims supervisor
but pt stated they will call Friday, so they requested Nursing Marketing Proposal Coordinator number. This nurse apologized for how she felt she was treated and understand their concerns.
== END 2024-11-13 14:10 | disposition home or self-care (01) ==
LOC: SDS 20:29
PROVIDERS: Emergency Medicine; Nurse Practitioner Family; ATTENDING PHYSICIAN Surgery; EMERGENCY PHYSICIAN Emergency Medicine; FAMILY PHYSICIAN Physician Assistant
DX: K80.12 Calculus of gallbladder with acute and chronic cholecystitis without obstruction (principal); D13.5 Benign neoplasm of extrahepatic bile ducts; K66.0 Peritoneal adhesions (postprocedural) (postinfection); Z87.19 Personal history of other diseases of the digestive system
CPT/HCPCS: 47563; 88304; 71046; 74300; 76000; 76700; 80053; 80076; 83036; 83690; 84484; 84703; 85025; 93005; 96374; 96375; 99285; A4300